=== PATIENT | female | born 1960 | race Caucasian/White ===

== ENCOUNTER 2019-04-09 21:50 | Emergency (ER) | payer BC, SELFPAY ==
[2019-04-09] MEDS ORDERED: Ibuprofen 600 MG TAB ONE (23:23)
--- NOTE | 2019-04-10 07:43 | RAD ---
THREE VIEWS RIGHT ANKLE: DATE: 04/09/2019. HISTORY: Trauma to right ankle. FINDINGS: The ankle mortise is congruent. There is a tiny calcification inferior to the lateral malleolus prob ably related to a tiny accessory center of ossification versus remote avulsion injury. No acute frac ture or dislocation is seen involving the ankle. Mild degenerative changes are seen at the talonavic ular joint. Posterior and plantar calcaneal enthesophytes are seen. Subcutaneous edema is seen at t he lateral aspect of the ankle. IMPRESSION: 1. No acute osseous abnormality. 2. Mild subcutaneous soft tissue swelling. POS: [facility]
== END 2019-04-09 23:33 | disposition home or self-care (01) ==
LOC: MADERS 21:50
DX: S93.431A Sprain of tibiofibular ligament of right ankle, initial encounter (principal); F17.210 Nicotine dependence, cigarettes, uncomplicated; W18.30XA Fall on same level, unspecified, initial encounter

== ENCOUNTER 2019-10-22 13:26 | Emergency (ER) | payer SELFPAY ==
[2019-10-22] MEDS ORDERED: Aspirin Chewable 81 MG TAB ONE ×2 (13:40→13:43)
[2019-10-22] MEDS ORDERED: Nitroglycerin 2% Ointment 1 INCH/1 GM Packet ONE (13:40)
--- NOTE | 2019-10-22 13:52 | RAD ---
Chest AP view INDICATION: Chest pain COMPARISON: July 04, 2012 FINDINGS: Lungs:The lungs are clear Cardiac silhouette:The cardiomediastinal silhouette appears within normal limits. Pulmonary vasculature:Normal Pleural spaces:No pleural effusion or pneumothorax is demonstrated. Upper abdomen:No abnormality seen. Osseous structures: No acute osseous abnormality. Additional findings:None. IMPRESSION: No acute cardiopulmonary abnormality.
[2019-10-22 14:13] LABS: #Basophils 0.1 thou/uL (0.0-0.2); #Eosinphils 0.1 thou/uL (0.0-0.7); #Lymphocytes 2.3 thou/uL (1.20-3.40); #Monocytes 0.5 thou/uL (0.11-0.59); #Neutrophils 5.3 thou/uL (1.40-6.50); %Basophils 0.8 % (0.0-1.0); %Eosinophils 1.7 % (0.0-10.0); %Lymphocytes 27.7 % (21.0-51.0); %Monocytes 5.6 % (0.0-10.0); %Neutrophils 64.2 % (42.0-75.0); Hemoglobin 15.8 g/dL (12.0-16.0); Mean Corpuscular HGB CONC 30.8 g/dL (32.0-36.0); Mean Corpuscular Hemoglobin 28.9 pg (27.0-31.0); Mean Corpuscular Volume 93.7 fL (78.0-98.0); Mean Platelet Volume 7.1 fL (7.4-10.4); Platelet Count 252 thou/uL (130-400); RBC Distribution Width 12.4 % (11.5-14.5); Red Blood Cell (RBC) Count 5.45 mill/uL (4.20-5.40); White Blood Cell (WBC) Count 8.3 thou/uL (4.8-10.8)
[2019-10-22 14:27] LABS: ALT (SGPT) 150 U/L (8-55); AST (SGOT) 89 U/L (5-34); Albumin 3.9 g/dL (3.5-5.0); Alkaline Phosphatase 77 U/L (40-110); Anion Gap 13 mmol/L (10-20); BUN (Urea Nitrogen) 13 mg/dL (9.8-20.1); Bilirubin, Total 0.8 mg/dL (0.2-1.2); Calc. Creatinine Clearance 0 mL/min (70-130); Calcium 9.3 mg/dL (7.8-10.44); Carbon Dioxide 22 mmol/L (22-29); Chloride 108 mmol/L (98-107); Estimated GFR-MDRD 72; Globulin 3.6 g/dL (2.4-3.5); Glucose 108 mg/dL (70-105); Potassium 4.4 mmol/L (3.5-5.1); Protein, Total 7.5 g/dL (6.0-8.3); Sodium 139 mmol/L (136-145)
== END 2019-10-22 16:46 | disposition short-term general hospital (02) ==
LOC: MADERS 13:26
DX: I24.9 Acute ischemic heart disease, unspecified (principal); I10 Essential (primary) hypertension; F17.210 Nicotine dependence, cigarettes, uncomplicated; B19.20 Unspecified viral hepatitis C without hepatic coma; R94.5 Abnormal results of liver function studies
CPT/HCPCS: 36415; 71045; 80053; 83880; 84484; 85025; 93005

== ENCOUNTER 2020-01-14 14:11 | Emergency (ER) | payer SELFPAY ==
[~2020-01-14 14:11] MED LIST: Iopamidol 370 76% 125 ML VIAL FS ONE; Sodium Chloride 0.9% 1,000 ML BAG ONE; Sodium Chloride 0.9% 100 ML BAG ONE
[2020-01-14] MEDS ORDERED: Adenosine 6 MG/2 ML VIAL ONE ×2 (14:41→14:42)
--- NOTE | 2020-01-14 14:50 | RAD ---
EXAM: Chest one view: HISTORY: Cough COMPARISON: 10/22/2019 FINDINGS: Heart size: Within normal limits. Lungs: Clear of acute process. No evidence for confluent pneumonia, pleural effusion, acute edema, or pneumothorax, or other signifi cant acute process. IMPRESSION: No significant acute intrathoracic disease.
[2020-01-14] MEDS ORDERED: Sodium Chloride 0.9% 100 ML ONE (14:53)
[2020-01-14] MEDS ORDERED: Diltiazem 125 MG/25 ML ONE (14:53)
[2020-01-14 15:01] LABS: #Basophils 0.1 thou/uL (0.0-0.2); #Eosinphils 0.3 thou/uL (0.0-0.7); #Lymphocytes 3.6 thou/uL (1.20-3.40); #Monocytes 0.9 thou/uL (0.11-0.59); #Neutrophils 6.9 thou/uL (1.40-6.50); %Basophils 1.2 % (0.0-1.0); %Eosinophils 2.2 % (0.0-10.0); %Lymphocytes 30.2 % (21.0-51.0); %Monocytes 7.5 % (0.0-10.0); %Neutrophils 58.9 % (42.0-75.0); Hemoglobin 18.7 g/dL (12.0-16.0); Mean Corpuscular HGB CONC 31.3 g/dL (32.0-36.0); Mean Corpuscular Hemoglobin 28.5 pg (27.0-31.0); Mean Corpuscular Volume 91.2 fL (78.0-98.0); Platelet Count 429 thou/uL (130-400); RBC Distribution Width 11.9 % (11.5-14.5); Red Blood Cell (RBC) Count 6.57 mill/uL (4.20-5.40); White Blood Cell (WBC) Count 11.8 thou/uL (4.8-10.8)
[2020-01-14 15:06] LABS: ALT (SGPT) 83 U/L (8-55); AST (SGOT) 57 U/L (5-34); Albumin 4.2 g/dL (3.5-5.0); Alkaline Phosphatase 94 U/L (40-110); Anion Gap 18 mmol/L (10-20); BUN (Urea Nitrogen) 18 mg/dL (9.8-20.1); CK (CPK) 109 U/L (29-168); Calc. Creatinine Clearance 0 mL/min (70-130); Calcium 9.7 mg/dL (7.8-10.44); Carbon Dioxide 20 mmol/L (22-29); Chloride 105 mmol/L (98-107); Estimated GFR-MDRD 55; Globulin 4.2 g/dL (2.4-3.5); Glucose 142 mg/dL (70-105); Potassium 4.3 mmol/L (3.5-5.1); Protein, Total 8.4 g/dL (6.0-8.3); Sodium 139 mmol/L (136-145)
[2020-01-14] MEDS ORDERED: Sodium Chloride 0.9% 1,000 ML ONE (16:38)
[2020-01-14] MEDS ORDERED: Digoxin 0.5 MG/2 ML AMP ONE ×2 (16:38→16:40)
[2020-01-14] MEDS ORDERED: Digoxin 0.125 MG TAB ONE (16:40)
--- NOTE | 2020-01-14 16:40 | CT ---
CT angiogram chest with IV contrast and 3-D imaging HISTORY: Chest pain. FINDINGS: There is good contrast opacification pulmonary arteries and thoracic aorta with normal bran nikky of the great vessels at the aortic arch. At the right posterior medial lung base is a subtle multinodular infiltrate favored to represent airspace disease. No pleural fluid or pneumothorax. No m ediastinal adenopathy. Within the partially visualized upper abdomen, a low-density mass arising from the left adrenal gland measures up to 2.8 cm x 1.9 cm greatest diameters on the axial images. After contrast administration, Hounsfield unit measurement cannot confidently characterized the lesion has an adenom a. IMPRESSION: No CT evidence of pulmonary embolus. Very subtle right posterior medial lung base infiltrate. Clinical correlation regarding other signs a nd symptoms of right basilar pneumonitis is required. In the absence of right lower lobe symptoms, please consider follow-up CT in 3-4 months to evaluate for resolution. Low-density left adrenal mass. Possibly an adenoma. Please consider short-term follow-up with [facility] ed CT of the adrenal glands, without and with IV contrast, employing an adrenal mass protocol, for better characterization.
[2020-01-14] MEDS ORDERED: Azithromycin 500 MG VIAL ONE (16:54)
[2020-01-14] MEDS ORDERED: cefTRIAXone\\ROCEPHIN 1 GM VIAL ONE (16:54)
[2020-01-14] MEDS ORDERED: Sodium Chloride 0.9% 250 ML 250 ML ONE (16:54)
== END 2020-01-14 17:45 | disposition short-term general hospital (02) ==
LOC: MADERS 14:11
DX: I48.92 Unspecified atrial flutter (principal); J18.9 Pneumonia, unspecified organism; F17.210 Nicotine dependence, cigarettes, uncomplicated; I10 Essential (primary) hypertension
CPT/HCPCS: 36415; 71045; 71275; 80053; 82550; 84484; 85025; 85379; 87040; 87804; 93005; 94760; 96361; 96365; 96366; 96375; 96376; J0153; J0456; J0696; J1160; J3490; J7050; Q9967

== ENCOUNTER 2021-11-26 22:27 | Emergency (ER) | payer BC, SELFPAY ==
[2021-11-26] MEDS ORDERED: Clindamycin 150 MG CAP ONE (23:44)
== END 2021-11-27 00:15 | disposition home or self-care (01) ==
LOC: MADERS 22:27
DX: L03.115 Cellulitis of right lower limb (principal); L97.919 Non-pressure chronic ulcer of unspecified part of right lower leg with unspecified severity; I10 Essential (primary) hypertension; F17.210 Nicotine dependence, cigarettes, uncomplicated; I48.91 Unspecified atrial fibrillation
CPT/HCPCS: 36416; 87070; 87077; 87186; 87205; 99406

== ENCOUNTER 2024-11-30 01:44 | Emergency (ER) | payer OTHER, SELFPAY ==
[2024-11-30] MEDS ORDERED: Boostrix 0.5 ML (Tdap) VIAL (>/=7 yrs of age) ONE (01:56)
[2024-11-30] MEDS ORDERED: Amoxicillin/Potassium Clav 875 MG TAB ONE (02:03)
[2024-11-30] MEDS ORDERED: Bacitracin 1 PK ONE (02:03)
[2024-11-30] MEDS ORDERED: traMADol HCl 50 MG TAB ONE (02:04)
== END 2024-11-30 02:30 | disposition home or self-care (01) ==
LOC: MADERS 01:44
DX: S41.152A Open bite of left upper arm, initial encounter (principal); S41.132A Puncture wound without foreign body of left upper arm, initial encounter; I10 Essential (primary) hypertension; E11.9 Type 2 diabetes mellitus without complications; I48.91 Unspecified atrial fibrillation; F17.210 Nicotine dependence, cigarettes, uncomplicated; W54.0XXA Bitten by dog, initial encounter; Z23 Encounter for immunization
CPT/HCPCS: 90471; 90715

== ENCOUNTER 2024-12-15 01:13 | Emergency (ER) | payer SELFPAY ==
[2024-12-15] MEDS ORDERED: cefTRIAXone (ROCEPHIN) 2 GM VIAL ONE (01:33)
[2024-12-15] MEDS ORDERED: Ipratropium/Albuterol 3 ML NEB ONE ×2 (01:33→04:36)
[2024-12-15] MEDS ORDERED: Acetaminophen 500 MG TAB ONE (01:33)
[2024-12-15] MEDS ORDERED: Ondansetron PF 4 MG/2 ML Vial ONE (01:33)
[2024-12-15] MEDS ORDERED: Azithromycin 500 MG VIAL ONE (01:33)
[2024-12-15] MEDS ORDERED: methylPREDNISolone Sod Succ/PF 125 MG/2 ML VIAL ONE (01:34)
[2024-12-15] MEDS ORDERED: Aspirin Chewable 81 MG TAB ONE (01:34)
[2024-12-15] MEDS ORDERED: Sodium Chloride 0.9% 1,000 ML ONE (01:34)
[2024-12-15 02:13] LABS: Band 1 % (5-11); Eosinophils 2 % (0-10); Hematocrit 54.5 % (36.0-47.0); Hemoglobin 16.8 g/dL (12.0-16.0); Lymphocytes 28 % (21-51); MDiff Complete? YES; Mean Corpuscular HGB CONC 30.8 g/dL (32.0-36.0); Mean Corpuscular Hemoglobin 28.8 pg (27.0-31.0); Mean Corpuscular Volume 93.6 fl (78.0-98.0); Mean Platelet Volume 8.1 fL (7.4-10.4); Monocytes 12 % (0-10); Neutrophil 57 % (42-75); Platelet Count 292 10x3/uL (130-400); RBC Distribution Width 13.4 % (11.5-14.5); Red Blood Cell (RBC) Count 5.82 mill/uL (4.20-5.40); White Blood Cell (WBC) Count 8.3 10x3/uL (4.8-10.8)
[2024-12-15 02:26] LABS: Troponin I Less than 0.010 ng/mL (< 0.028)
[2024-12-15 02:27] LABS: ALT (SGPT) 49 U/L (Less than 34); AST (SGOT) 40 U/L (11-34); Alkaline Phosphatase 140 U/L (40-110); Anion Gap 13 mmol/L (10-20); BUN (Urea Nitrogen) 7 mg/dL (9.8-20.1); Bilirubin, Total 1.4 mg/dL (0.3-1.2); Calc. Creatinine Clearance 0 mL/min (70-130); Calcium 8.7 mg/dL (7.8-10.44); Carbon Dioxide 21 mmol/L (23-31); Chloride 104 mmol/L (98-107); Estimated GFR 81; Globulin 4.3 g/dL (2.4-3.5); Glucose 328 mg/dL (80-115); Lipase 29 U/L (8-78); Magnesium 1.6 mg/dL (1.6-2.6); Potassium 4.2 mmol/L (3.5-5.1); Protein, Total 7.3 g/dL (5.8-8.1); Sodium 134 mmol/L (136-145)
[2024-12-15] MEDS ORDERED: dilTIAZem 25 MG/5 ML VIAL ONE ×3 (04:17→05:16)
[2024-12-15] MEDS ORDERED: Ipratropium Bromide 2.5 ml Neb ONE (04:36)
[2024-12-15] MEDS ORDERED: dilTIAZem 125 MG/25 ML SDV ONE (04:40)
[2024-12-15 05:12] LABS: Troponin I Less than 0.010 ng/mL (< 0.028)
== END 2024-12-15 06:19 | disposition short-term general hospital (02) ==
LOC: MADERS 01:13
DX: I48.91 Unspecified atrial fibrillation (principal); R07.89 Other chest pain; J44.1 Chronic obstructive pulmonary disease with (acute) exacerbation; E11.65 Type 2 diabetes mellitus with hyperglycemia; I11.0 Hypertensive heart disease with heart failure; I50.9 Heart failure, unspecified; F17.210 Nicotine dependence, cigarettes, uncomplicated; Z79.01 Long term (current) use of anticoagulants
CPT/HCPCS: 36416; 71046; 80053; 83605; 83690; 83735; 84443; 84484; 85025; 87040; 87428; 93005; 94760; 96361; 96365; 96375; 96376; J0456; J0696; J2405; J2919; J7030; J7620; J7644